=== PATIENT | female | born 1985 | race Caucasian/White ===

== ENCOUNTER 2019-11-09 08:13 | Emergency (ER) | payer MEDICAID, OTHER ==
[~2019-11-09] VITALS: Ht 182.9 cm; Wt 100.2 kg
[2019-11-09 08:14] VITALS: BP 132/96
--- NOTE | 2019-11-09 08:56 | NUR ---
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
[2019-11-09] MEDS ORDERED: KETOROLAC 60 MG/2 ML ONE (09:16)
[2019-11-09] MEDS ORDERED: KETOROLAC 30 MG/1 ML IM ONE (09:30)
== END 2019-11-09 10:31 | disposition home or self-care (01) ==
LOC: ED 09:08
DX: G89.11 Acute pain due to trauma (principal); M79.672 Pain in left foot; W19.XXXA Unspecified fall, initial encounter; Y93.89 Activity, other specified; Y92.098 Other place in other non-institutional residence as the place of occurrence of the external cause; Y99.8 Other external cause status
CPT/HCPCS: 73630; 96372; 99283; J1885

== ENCOUNTER 2020-08-18 10:19 | Emergency (ER) | payer MEDICAID ==
[~2020-08-18] VITALS: Ht 182.9 cm; Wt 104.5 kg
[2020-08-18 10:26] VITALS: BP 105/67
== END 2020-08-18 11:15 | disposition home or self-care (01) ==
LOC: ED 11:00
DX: S80.212A Abrasion, left knee, initial encounter (principal); S80.211A Abrasion, right knee, initial encounter; G89.29 Other chronic pain; M79.672 Pain in left foot; X58.XXXA Exposure to other specified factors, initial encounter; Y93.89 Activity, other specified; Y92.89 Other specified places as the place of occurrence of the external cause; Y99.8 Other external cause status
CPT/HCPCS: 99283